=== PATIENT | female | born 1975 | race Asian ===

== ENCOUNTER 2019-11-13 08:24 | Emergency (ER) | payer OTHER, SELFPAY ==
--- NOTE | ~2019-11-13 | XR_ITS ---
EXAMINATION: XR soft tissue neck INDICATION: Choking, abnormal sensation in the throat TECHNIQUE: AP and lateral views of the neck soft tissues are obtained. COMPARISON: None available FINDINGS: No radiopaque foreign body is identified. The next soft tissues are unremarkable. There is mild worsening of the normal cervical lordosis. IMPRESSION: 1. Unremarkable neck radiographs. Reviewed, dictated and finalized at location A.
[2019-11-13 08:37] VITALS: BP 125/78; PULSE 75; RESP 18; TEMP 36.8; O2SAT 100
--- NOTE | 2019-11-13 08:55 | ED.GENADULT ---
HPI - General Adult General Chief complaint: Unspecified Stated complaint: Food In Throat Time Seen by Provider: 11/13/19 08:32 Source: patient and family Mode of arrival: ambulatory Limitations: language barrier History of Present Illness HPI narrative: This patient is a 43 year old female who presents from home for evaluation of something stuck in her throat. Patient states she was eating rice, beans when started feeling something stuck in her throat. She made her self throw up a few times. After vomiting she started throwing up blood tinged . She have been able to drink water with nausea or vomiting. She still feels like something in her throat . She denies sob, dizziness, or swelling. She denies history of dysphagia. Onset (ago): hour(s) (2) Related Data Home Medications Medication Instructions Recorded Confirmed No Home Medications 11/13/19 11/13/19 Allergies Allergy/AdvReac Type Severity Reaction Status Date / Time No Known Allergies Allergy Verified 11/13/19 08:45 Review of Systems Review of Systems: All systems reviewed & are unremarkable except as noted in HPI and below Constitutional: Constitutional: Denies chills and Denies fever(s) ENT: Denies dysphagia and Denies sore throat Cardiovascular: Cardiovascular: Denies chest pain Respiratory: Respiratory: Denies cough and Denies dyspnea Gastrointestinal: Gastrointestinal: Denies abdominal pain, Denies nausea and Reports vomiting Musculoskeletal: Musculoskeletal: Denies back pain PMFSH Past Medical History Medical History (Updated 11/13/19 @ 11:14 by Sindhu Reyes MD) Patient denies medical problems Surgical History Surgical History (Updated 11/13/19 @ 08:58 by Sindhu Reyes MD) No pertinent past surgical history Social History Social History (Updated 11/13/19 @ 08:58 by Sindhu Reyes MD) Smoking status: Never smoker Gender identity (if verbalized by the patient): Female Exam Narrative: Exam Narrative: GENERAL: Well-appearing, well-nourished, and in no acute distress. HEAD: Normocephalic, atraumatic EYES: PERRLA and EOMI, conjunctiva clear without discharge EARS: TM's clear bilaterally without erythema or dullness NOSE: Nares clear, no rhinorrhea or epistaxis THROAT:Mucous membranes moist, Oropharynx normal without erythema, exudate, peritonsillar swelling or fluctuance NECK: Supple, without lymphadenopathy or mass RESPIRATORY: No respiratory distress, Airway patent, Respirations non-labored, Clear to auscultation without rales, rhonchi or wheeze HEART: Regular rate and rhythm. No murmur heard. Normal peripheral pulses. ABDOMEN: Soft, nontender, nondistended, normal active bowel sounds. No masses. No rebound or guarding, No organomegaly. EXTREMITIES: No edema, normal strength with full range of motion. SKIN: Warm, dry, normal color without rash NEURO: Alert and oriented x3. CN 2-12 grossly intact. No focal deficits. PSYCH: Normal mood and affect. Course Reevaluation(s) Reevaluation #1: Patient has no issue swallowing at this time. they would like to be discharge. If she has any other problems they will follow up with PCP Date: 11/13/19 Time: 11:11 Vital Signs Vital signs: Vital Signs Temperature 98.3 F 11/13/19 08:37 Pulse Rate 75 11/13/19 08:37 Respiratory Rate 18 11/13/19 08:37 Blood Pressure 125/78 11/13/19 08:37 Pulse Oximetry 100 11/13/19 08:37 Temperature 98.3 F 11/13/19 08:37 Pulse Rate 69 11/13/19 10:10 Respiratory Rate 20 11/13/19 10:10 Blood Pressure 107/78 11/13/19 10:10 Pulse Oximetry 100 11/13/19 10:10 Medical Decision Making Vital Signs Vital Signs: Vital Signs Temperature 98.3 F 11/13/19 08:37 Pulse Rate 75 11/13/19 08:37 Respiratory Rate 18 11/13/19 08:37 Blood Pressure 125/78 11/13/19 08:37 Pulse Oximetry 100 11/13/19 08:37 Temperature 98.3 F 11/13/19 08:37 Pulse Rate 69 11/13/19 10:10 Respirato
[2019-11-13] MEDS: BELLADONNA ALK/PHENOB ELIX 10 ML, MAG HYDROX/ALUMINUM HYD/SIMETH 30 ML, LIDOCAINE HCL 2... PO (09:12)
[2019-11-13 10:10] VITALS: BP 107/78; PULSE 69; RESP 20; O2SAT 100
== END 2019-11-13 11:21 | disposition home or self-care (01) ==
PROVIDERS: Emergency Provider General Practice
DX: R13.10 Dysphagia, unspecified (principal)
CPT/HCPCS: 70360; 99283; A9270